=== PATIENT | female | born 1965 | race Caucasian/White ===

== ENCOUNTER 2018-06-14 17:03 | Emergency (ER) | payer MEDICAID ==
[~2018-06-14] VITALS: Ht 149.9 cm; Wt 77.1 kg
[2018-06-14 17:07] VITALS: BP_SYST 153
[2018-06-14] MEDS ORDERED: KETOROLAC TROMETHAMINE 30 MG VIAL IM ONE (17:30)
[2018-06-14 18:34] VITALS: BP_SYST 140
== END 2018-06-14 18:34 | disposition home or self-care (01) ==
LOC: SED 17:03
DX: G89.29 Other chronic pain (principal); M17.12 Unilateral primary osteoarthritis, left knee; I10 Essential (primary) hypertension
CPT/HCPCS: 73564; 96372; 99283; J1885; 99284

== ENCOUNTER 2020-11-22 18:47 | Emergency (ER) | payer MEDICAID, OTHER ==
[~2020-11-22] VITALS: Ht 149.9 cm; Wt 74.8 kg
[2020-11-22 18:52] VITALS: BP_SYST 118
[2020-11-22] MEDS ORDERED: KETOROLAC TROMETHAMINE 60 MG/2 ML VIAL IM ONE (19:00)
[2020-11-22] MEDS ORDERED: NAPR-690 PO (20:18)
[2020-11-22 20:20] VITALS: BP_SYST 118
== END 2020-11-22 20:20 | disposition home or self-care (01) ==
LOC: SED 18:47
DX: M25.512 Pain in left shoulder (principal); I10 Essential (primary) hypertension
CPT/HCPCS: 96374; 99283; J1885

== ENCOUNTER 2020-11-27 19:02 | Emergency (ER) | payer OTHER ==
[~2020-11-27] VITALS: Ht 149.9 cm; Wt 70.3 kg
[~2020-11-27 19:02] MED LIST: NAPR-690 PO
[2020-11-27 19:10] VITALS: BP_SYST 116
--- NOTE | 2020-11-27 19:10 | NUR ---
PT TO BED 5 FOR EVALUATION, REPORT GIVEN TO JEFFRY KENNEDY WHO WILL ASSUME CARE.
--- NOTE | 2020-11-27 19:17 | NUR ---
DR. TYLER AT BEDSIDE FOR PATIENT EVALUATION.
[2020-11-27] MEDS ORDERED: NAPR-1172 PO (19:37)
--- NOTE | 2020-11-27 19:38 | NUR ---
PATIENT AAOX4 AND AMBULATORY C/O LEFT SHOULDER WORSENING PAIN AFTER LOSING BALANCE AND INJURING SHOULDER AT [place]. PATIENT STATED HAVING ORTHO APPOINTMENT ON THE . CURRENTLY RATING 6/10 ON THE PAIN SCALE. HISTORY OF DM AND HTN. VSS.
[2020-11-27] MEDS ORDERED: IBUPROFEN 600 MG TABLET PO ONE (19:45)
--- NOTE | 2020-11-27 19:45 | NUR ---
MEDICATION ADMINISTERED ORDERED.
--- NOTE | 2020-11-27 19:48 | NUR ---
Patient given written and verbal discharge instructions and verbalizes understanding. DR. NAYELI PADRON MD discussed with patient the results and treatment provided. Patient in stable condition. ID arm band removed. Rx of NAPROXEN given. Patient educated on pain management and to follow up with PMD. Pain Scale 0/10 Opportunity for questions provided and answered. Medication side effect fact sheet provided.
[2020-11-27 19:49] VITALS: BP_SYST 116
== END 2020-11-27 19:48 | disposition home or self-care (01) ==
LOC: SED 19:02
DX: G89.29 Other chronic pain (principal); M25.512 Pain in left shoulder; I10 Essential (primary) hypertension; Z79.899 Other long term (current) drug therapy
CPT/HCPCS: 99282

== ENCOUNTER 2020-12-10 23:48 | Emergency (ER) | payer OTHER ==
[~2020-12-10] VITALS: Ht 149.9 cm; Wt 72.6 kg
[~2020-12-10 23:48] MED LIST changes: +NAPR-1172 PO
[2020-12-11 00:05] VITALS: BP_SYST 143
[2020-12-11 00:38] VITALS: BP_SYST 143
[2020-12-11] MEDS ORDERED: NAPR-1172 PO (00:40)
[2020-12-11] MEDS ORDERED: HYDROcodone/ACETAMIN 5-325 MG TAB (NORCO/ VICODIN) PO ONE (00:45)
== END 2020-12-11 00:50 | disposition home or self-care (01) ==
LOC: SED 23:48
DX: M25.512 Pain in left shoulder (principal); I10 Essential (primary) hypertension; E11.9 Type 2 diabetes mellitus without complications; Z79.899 Other long term (current) drug therapy
CPT/HCPCS: 99283

== ENCOUNTER 2020-12-15 16:44 | Emergency (ER) | payer OTHER ==
[~2020-12-15] VITALS: Ht 149.9 cm; Wt 74.8 kg
[2020-12-15 17:08] VITALS: BP_SYST 131
[2020-12-15] MEDS ORDERED: HYDROcodone/ACETAMIN 7.5-325 MG TAB PO ONE (17:15)
[2020-12-15] MEDS ORDERED: IBUPROFEN 800 MG TABLET PO ONE (17:15)
[2020-12-15] MEDS ORDERED: HYDR-3917 PO (17:49)
[2020-12-15] MEDS ORDERED: IBUP-1969 PO (17:49)
[2020-12-15 18:13] VITALS: BP_SYST 106
== END 2020-12-15 18:13 | disposition home or self-care (01) ==
LOC: SED 16:44
DX: M25.512 Pain in left shoulder (principal); I10 Essential (primary) hypertension; Z79.899 Other long term (current) drug therapy
CPT/HCPCS: 73030; 99283

== ENCOUNTER 2020-12-22 17:49 | Emergency (ER) | payer OTHER ==
[~2020-12-22] VITALS: Ht 149.9 cm; Wt 74.8 kg
[~2020-12-22 17:49] MED LIST changes: +HYDR-3917 PO; +IBUP-1969 PO
[2020-12-22 17:55] VITALS: BP_SYST 154
[2020-12-22] MEDS ORDERED: KETOROLAC TROMETHAMINE 30 MG VIAL IM ONE (18:30)
[2020-12-22 19:06] VITALS: BP_SYST 152
== END 2020-12-22 19:06 | disposition home or self-care (01) ==
LOC: SED 17:49
DX: G89.29 Other chronic pain (principal); M25.511 Pain in right shoulder; I10 Essential (primary) hypertension; Z79.899 Other long term (current) drug therapy
CPT/HCPCS: 96372; 99283; J1885

== ENCOUNTER 2021-03-21 15:56 | Emergency (ER) | payer MEDICAID, OTHER ==
[~2021-03-21] VITALS: Ht 149.9 cm; Wt 74.8 kg
[2021-03-21 16:03] VITALS: BP_SYST 133
[2021-03-21] MEDS ORDERED: DIPHENHYDRAMINE INJ 50 MG/ML VIAL IM ONE (19:45)
[2021-03-21] MEDS ORDERED: MORPHINE SULFATE 10 MG/ML VIAL IM ONE (19:45)
[2021-03-21 19:50] VITALS: BP_SYST 134
== END 2021-03-21 20:56 | disposition admitted as inpatient to this hospital (09) ==
LOC: SED 15:56
DX: G89.18 Other acute postprocedural pain (principal); M25.512 Pain in left shoulder; I10 Essential (primary) hypertension; E11.9 Type 2 diabetes mellitus without complications; Z79.899 Other long term (current) drug therapy
CPT/HCPCS: 96372; 99284; J1200; J2270

== ENCOUNTER 2021-04-10 23:31 | Emergency (ER) | payer MEDICAID ==
[~2021-04-10] VITALS: Ht 149.9 cm; Wt 74.8 kg
[2021-04-11 00:28] VITALS: BP_SYST 142
--- NOTE | 2021-04-11 00:38 | NUR ---
Patient ambulatory, alert awake, oriented x 4. To waiting room
--- NOTE | 2021-04-11 03:22 | NUR ---
PT ARRIVED TO ER WITH COMPLAINSTS OF LEFT SHOULDER PAIN AND MEDICATION REFILL. PT HAD SURGERY ON HER LEFT SHOULDER ON OCTOBER AND HAS BEEN TKAING [place] FOR HER PAIN. PT HAS RAN OUT AND NEEDS MORE. 10/10 PAIN. STATES SHE WAS TAKING 2 AT A TIME BECASUE HER PAIN WAS SO MUCH. SHE HAS BEEN OUT OF HER MEDS FOR A WEEK NOW
--- NOTE | 2021-04-11 03:55 | NUR ---
ER Dr MENDES at bedside examining patient.
--- NOTE | 2021-04-11 04:10 | NUR ---
BG 141
[2021-04-11] MEDS ORDERED: MORPHINE 4 MG INJ. 4 MG/ML VIAL IM ONE (04:15)
[2021-04-11] MEDS ORDERED: KETOROLAC TROMETHAMINE 30 MG VIAL IM ONE (04:15)
[2021-04-11] MEDS ORDERED: MORPHINE 4 MG INJ. 4 MG/ML VIAL ONE (04:16)
[2021-04-11] MEDS ORDERED: HYDR-3917 PO (05:50)
[2021-04-11 06:19] VITALS: BP_SYST 155
--- NOTE | 2021-04-11 06:20 | NUR ---
Patient given written and verbal discharge instructions and verbalizes understanding. ER MD discussed with patient the results and treatment provided. Patient in stable condition. ID arm band removed. Patient educated on pain management and to follow up with PMD. Pain Scale 5/10. Opportunity for questions provided and answered. Medication side effect fact sheet provided.
== END 2021-04-11 06:18 | disposition home or self-care (01) ==
LOC: SED 23:31
DX: M25.512 Pain in left shoulder (principal); I10 Essential (primary) hypertension; E11.9 Type 2 diabetes mellitus without complications; Z79.899 Other long term (current) drug therapy
CPT/HCPCS: 73030; 82962; 93005; 96372; 99284; J1885; J2270

== ENCOUNTER 2021-05-09 11:48 | Emergency (ER) | payer MEDICAID ==
[~2021-05-09] VITALS: Ht 149.9 cm; Wt 108.9 kg
[2021-05-09 11:58] VITALS: BP_SYST 162
--- NOTE | 2021-05-09 12:00 | NUR ---
Patient to ER bed 8 to gown for evaluation. Side rails up. Report given to Le TERAN.
--- NOTE | 2021-05-09 12:03 | NUR ---
ER at bedside examining patient.
--- NOTE | 2021-05-09 12:10 | NUR ---
Urine sample and sent to lab for analysis.
--- NOTE | 2021-05-09 12:25 | NUR ---
Lab at bedside for blood draw.
--- NOTE | 2021-05-09 12:38 | NUR ---
Pt to CT scan by wheelchair.
[2021-05-09 12:44] LABS: BASOPHILS # (AUTO) 0.1 K/uL (0.0-0.2); BASOPHILS % (AUTO) 0.7 % (0.0-2.0); EOSINOPHILS # (AUTO) 0.2 K/uL (0.0-0.4); EOSINOPHILS % (AUTO) 2.5 % (0.0-4.0); HEMATOCRIT 43.4 % (36-48); HEMOGLOBIN 15.2 g/dL (12.0-16.0); LYMPHOCYTES % (AUTO) 38.2 % (20.5-51.5); MEAN CORPUSCULAR HEMOGLOBIN 33 pg (27-31); MEAN CORPUSCULAR HGB CONC 35 % (32-36); MEAN CORPUSCULAR VOLUME 95 fL (79.0-98.0); MONOCYTES # (AUTO) 0.8 K/uL (0.0-1.0); MONOCYTES % (AUTO) 9.8 % (1.7-9.3); NEUTROPHILS # (AUTO) 3.8 K/uL (1.8-7.7); NEUTROPHILS % (AUTO) 48.8 % (40.0-70.0); PLATELET COUNT (AUTO) 144 K/uL (130-430); RED BLOOD CELL COUNT(AUTO) 4.58 MIL/uL (4.2-6.2); RED CELL DISTRIBUTION WIDTH 15.1 % (9.0-15.0); WHITE BLOOD COUNT (AUTO) 7.9 K/uL (4.8-10.8)
--- NOTE | 2021-05-09 12:50 | NUR ---
Pt back from CT scan.
[2021-05-09 12:56] LABS: BILIRUBIN,URINE NEGATIVE (NEGATIVE); BLOOD, URINE 1+ (NEGATIVE); CLARITY/URINE SL CLOUDY (CLEAR); COLOR,URINE YELLOW (YELLOW); GLUCOSE,URINE NEGATIVE (NEGATIVE); KETONES,URINE TRACE (NEGATIVE); LEUKOCYTE ESTERASE ,URINE 2+ (NEGATIVE); NITRITE, URINE POSITIVE (NEGATIVE); PROTEIN URINE TRACE (NEGATIVE); UROBILINOGEN,URINE 0.2 (0.2-1.0)
[2021-05-09 13:18] LABS: BACTERIA,URINE MODERATE /HPF (None Seen)
[2021-05-09 13:19] LABS: CALCIUM OXALATE CRYSTALS,UR None Seen /HPF (None Seen); CALCIUM PHOSPHATE CRYSTALS,UR None Seen /HPF (None Seen); TRICHOMONAS,URINE None Seen /HPF (None Seen); TRIPLE PHOSPHATE CRYSTAL,UR None Seen /HPF (None Seen); URIC ACID CRYSTALS,URINE None Seen /HPF (None Seen); YEAST,URINE None Seen /HPF (None Seen)
[2021-05-09 13:27] LABS: PROTHROMBIN TIME 10.4 SECS (9.5-12.5)
[2021-05-09] MEDS ORDERED: KETOROLAC TROMETHAMINE 60 MG/2 ML VIAL IM ONE (13:30)
--- NOTE | 2021-05-09 13:35 | NUR ---
Pt is resting quietly awaiting disposition.
[2021-05-09 13:45] LABS: CALCIUM 9.6 mg/dL (8.4-11.0); CREATININE 0.75 mg/dL (0.55-1.30); POTASSIUM 4.2 mmol/L (3.5-5.1)
[2021-05-09 13:52] LABS: ALBUMIN 3.6 g/dL (3.4-4.8); TOTAL BILIRUBIN 0.5 mg/dL (0.0-1.0)
[2021-05-09] MEDS ORDERED: cefTRIAXone 1 GM in LIDOCAINE 1%, 20 ML MDV 2.1 ML IM ONE (14:00)
[2021-05-09] MEDS ORDERED: HYDR-3917 PO (14:05)
[2021-05-09] MEDS ORDERED: OMEP20CA15 PO (14:05)
[2021-05-09 14:29] LABS: C-REACTIVE PROTEIN QUANT 0.2 mg/dL (0-0.5)
[2021-05-09] MEDS ORDERED: CEPH-548 PO (14:33)
[2021-05-09 14:35] VITALS: BP_SYST 148
--- NOTE | 2021-05-09 14:35 | NUR ---
Patient given written and verbal discharge instructions and verbalizes understanding. Dr. Evie PADRON MD discussed with patient the results and treatment provided. Patient in stable condition. ID arm band removed. Rx per MD. Patient educated on pain management and to follow up with PMD. Pain Scale 0/10. Opportunity for questions provided and answered. Medication side effect fact sheet provided.
== END 2021-05-09 14:35 | disposition home or self-care (01) ==
LOC: SED 11:48
DX: N39.0 Urinary tract infection, site not specified (principal); I10 Essential (primary) hypertension; E11.9 Type 2 diabetes mellitus without complications; Z79.899 Other long term (current) drug therapy
CPT/HCPCS: 36415; 74176; 76376; 80053; 81000; 82150; 83605; 83615; 83690; 84484; 84703; 85025; 85610; 85730; 86140; 87086; 96372; 99284; J0696; J1885; J2001

== ENCOUNTER 2021-05-19 12:46 | Emergency (ER) | payer MEDICAID ==
[~2021-05-19] VITALS: Ht 149.9 cm; Wt 74.8 kg
[~2021-05-19 12:46] MED LIST changes: +CEPH-548 PO; +OMEP20CA15 PO
[2021-05-19 13:07] VITALS: BP_SYST 159
[2021-05-19] MEDS ORDERED: KETOROLAC TROMETHAMINE 60 MG/2 ML VIAL IM ONE (13:45)
[2021-05-19 14:07] LABS: BASOPHILS % (AUTO) 0.5 % (0.0-2.0); EOSINOPHILS # (AUTO) 0.1 K/uL (0.0-0.4); EOSINOPHILS % (AUTO) 0.9 % (0.0-4.0); HEMATOCRIT 41.4 % (36-48); HEMOGLOBIN 14.4 g/dL (12.0-16.0); LYMPHOCYTES # (AUTO) 2.9 K/uL (1.0-5.5); MEAN CORPUSCULAR HEMOGLOBIN 33 pg (27-31); MEAN CORPUSCULAR HGB CONC 35 % (32-36); MEAN CORPUSCULAR VOLUME 94 fL (79.0-98.0); MONOCYTES # (AUTO) 0.8 K/uL (0.0-1.0); MONOCYTES % (AUTO) 11.9 % (1.7-9.3); NEUTROPHILS # (AUTO) 3.2 K/uL (1.8-7.7); NEUTROPHILS % (AUTO) 45.7 % (40.0-70.0); PLATELET COUNT (AUTO) 169 K/uL (130-430); RED BLOOD CELL COUNT(AUTO) 4.43 MIL/uL (4.2-6.2); RED CELL DISTRIBUTION WIDTH 15.1 % (9.0-15.0)
[2021-05-19 14:20] LABS: CALCIUM 9.2 mg/dL (8.4-11.0); CREATININE 0.58 mg/dL (0.55-1.30); POTASSIUM 4.1 mmol/L (3.5-5.1)
[2021-05-19 14:25] LABS: ALBUMIN 3.4 g/dL (3.4-4.8); TOTAL BILIRUBIN 0.3 mg/dL (0.0-1.0)
[2021-05-19] MEDS ORDERED: ACET1TAB23 PO (16:18)
[2021-05-19 16:26] VITALS: BP_SYST 148
== END 2021-05-19 16:26 | disposition home or self-care (01) ==
LOC: SED 12:46
DX: R10.13 Epigastric pain (principal); I10 Essential (primary) hypertension; E11.9 Type 2 diabetes mellitus without complications; Z79.899 Other long term (current) drug therapy
CPT/HCPCS: 36415; 76700; 80053; 82962; 83690; 84484; 85025; 93005; 96372; 99285; J1885

== ENCOUNTER 2021-05-24 19:37 | Emergency (ER) | payer MEDICAID ==
[~2021-05-24] VITALS: Ht 149.9 cm; Wt 74.8 kg
[2021-05-24 19:37] VITALS: BP_SYST 164
[~2021-05-24 19:37] MED LIST changes: +ACET1TAB23 PO
--- NOTE | 2021-05-24 20:35 | NUR ---
Patient triaged and placed in waiting room. VSS and patient appears in no acute distress at this time. Accompanied by paramedics, awaiting available bed, and MD notified of need for MSE.
--- NOTE | 2021-05-24 21:38 | NUR ---
Patient wheeled to bed 1 for evaluation
[2021-05-24] MEDS ORDERED: ASPIRIN 81 MG TAB.CHEW PO ONE (21:45)
--- NOTE | 2021-05-24 21:50 | NUR ---
PT ARRIVED TO ER BY FOR COMPLAINTS OF EPIGASTRIC PAIN X 2 WEEKS. PT STATES IT HURTS 12/20 CONSTANT. -CP, A&OX4.
--- NOTE | 2021-05-24 22:10 | NUR ---
VITO Gibbons at bedside examining patient.
[2021-05-24] MEDS ORDERED: MAG-AL HYDROX/SIMETH 30 ML UDC PO ONE (22:30)
[2021-05-24] MEDS ORDERED: LIDOCAINE VISCOUS 2%, 15 ML UDC MM ONE (22:30)
[2021-05-24] MEDS ORDERED: PROCHLORPERAZINE EDISYLATE 10 MG/2 ML VIAL IVP ONE (22:30)
[2021-05-24] MEDS ORDERED: MORPHINE 4 MG INJ. 4 MG/ML VIAL IVP ONE (22:30)
[2021-05-24 22:32] LABS: BASOPHILS % (AUTO) 0.6 % (0.0-2.0); EOSINOPHILS # (AUTO) 0.1 K/uL (0.0-0.4); EOSINOPHILS % (AUTO) 1.6 % (0.0-4.0); HEMATOCRIT 37.6 % (36-48); LYMPHOCYTES # (AUTO) 3.3 K/uL (1.0-5.5); MEAN CORPUSCULAR HEMOGLOBIN 33 pg (27-31); MEAN CORPUSCULAR HGB CONC 35 % (32-36); MEAN CORPUSCULAR VOLUME 95 fL (79.0-98.0); MONOCYTES # (AUTO) 0.6 K/uL (0.0-1.0); MONOCYTES % (AUTO) 9.1 % (1.7-9.3); NEUTROPHILS % (AUTO) 41.7 % (40.0-70.0); PLATELET COUNT (AUTO) 152 K/uL (130-430); RED BLOOD CELL COUNT(AUTO) 3.96 MIL/uL (4.2-6.2); RED CELL DISTRIBUTION WIDTH 15.7 % (9.0-15.0); WHITE BLOOD COUNT (AUTO) 7.1 K/uL (4.8-10.8)
[2021-05-24 22:39] LABS: CREATININE 0.69 mg/dL (0.55-1.30)
[2021-05-24 22:45] LABS: ALBUMIN 3.2 g/dL (3.4-4.8); TOTAL BILIRUBIN 0.2 mg/dL (0.0-1.0)
--- NOTE | 2021-05-24 22:52 | NUR ---
# 20 gauge angiocath placed to L WRIST. Use of asceptic technique. Opsite placed over site. Blood return noted. Flushed with 10 cc of normal saline. No evidence of infiltration noted. Patient tolerated well.
--- NOTE | 2021-05-25 00:20 | NUR ---
PT RESTING IN BED. VSS. NO DISTRESS NOTED
[2021-05-25] MEDS ORDERED: METO5TAB86 PO (03:07)
[2021-05-25] MEDS ORDERED: MOM PO (03:07)
[2021-05-25] MEDS ORDERED: OMEP40CA20 PO (03:07)
--- NOTE | 2021-05-25 03:16 | NUR ---
Patient given written and verbal discharge instructions and verbalizes understanding. ER MD discussed with patient the results and treatment provided. Patient in stable condition. ID arm band removed. IV catheter removed intact and dressing applied, no active bleeding. Rx of REGLAN, MILK OF MAGNESIA, OMEPRZOLE given. Patient educated on pain management and to follow up with PMD. Pain Scale 2/10. Opportunity for questions provided and answered. Medication side effect fact sheet provided.
[2021-05-25 03:24] VITALS: BP_SYST 164
== END 2021-05-25 03:24 | disposition home or self-care (01) ==
LOC: SED 19:37
DX: K29.70 Gastritis, unspecified, without bleeding (principal); I10 Essential (primary) hypertension; E11.9 Type 2 diabetes mellitus without complications; Z79.899 Other long term (current) drug therapy
CPT/HCPCS: 36415; 71045; 74018; 80053; 83880; 84484; 85025; 85651; 93005; 96374; 96375; 99285; J0780; J2001; J2270

== ENCOUNTER 2022-02-22 11:57 | Emergency (ER) | payer MEDICAID ==
[~2022-02-22] VITALS: Ht 149.9 cm; Wt 70.3 kg
[~2022-02-22 11:57] MED LIST changes: -ACET1TAB23 PO; -CEPH-548 PO; +CLON0.1T PO; -HYDR-3917 PO; +LISI10TA29 PO; +MOM PO; -NAPR-1172 PO; -NAPR-690 PO; -OMEP20CA15 PO
[2022-02-22 12:13] VITALS: BP_SYST 174
--- NOTE | 2022-02-22 14:24 | NUR ---
MD GONSALEZAW IN TRIAGE FOR MSE
[2022-02-22 15:00] LABS: BASOPHILS # (AUTO) 0.2 K/uL (0.0-0.2); BASOPHILS % (AUTO) 2.1 % (0.0-2.0); EOSINOPHILS # (AUTO) 0.5 K/uL (0.0-0.4); EOSINOPHILS % (AUTO) 6.6 % (0.0-4.0); HEMATOCRIT 40.3 % (36-48); LYMPHOCYTES # (AUTO) 2.3 K/uL (1.0-5.5); LYMPHOCYTES % (AUTO) 28.3 % (20.5-51.5); MEAN CORPUSCULAR VOLUME 91 fL (79.0-98.0); MONOCYTES # (AUTO) 0.6 K/uL (0.0-1.0); MONOCYTES % (AUTO) 7.2 % (1.7-9.3); NEUTROPHILS # (AUTO) 4.5 K/uL (1.8-7.7); NEUTROPHILS % (AUTO) 55.8 % (40.0-70.0); PLATELET COUNT (AUTO) 167 K/uL (130-430); RED BLOOD CELL COUNT(AUTO) 4.42 MIL/uL (4.2-6.2); RED CELL DISTRIBUTION WIDTH 14.5 % (9.0-15.0); WHITE BLOOD COUNT (AUTO) 8.1 K/uL (4.8-10.8)
[2022-02-22 15:04] LABS: CALCIUM 10.5 mg/dL (8.4-11.0); CREATININE 0.97 mg/dL (0.55-1.30); POTASSIUM 4.3 mmol/L (3.5-5.1)
[2022-02-22 15:09] LABS: ALBUMIN 3.6 g/dL (3.4-4.8); TOTAL BILIRUBIN 0.5 mg/dL (0.0-1.0)
[2022-02-22] MEDS ORDERED: INSULIN REGULAR, HUMAN 10 UNITS/0.1 ML INJ SUBCUT ONE (15:15)
--- NOTE | 2022-02-22 16:41 | NUR ---
Patient to ER CHAIR for evaluation.
--- NOTE | 2022-02-22 16:43 | NUR ---
PATIENT BROUGHT INTO ED WITH COMPLAIING OF GENERALIZED WEAKNESS. PATIENT IS OUT OF DIABETIC AND HYPERTENSIVE MEDICATIONS. PATIENT REPORTS JUST MOVING AND UNABLE TO FIND A PCP. PATIENT REPORTS HAVING LEFT SHOULDER SURGERY NEXT MONTH AND NEEDS TO BE MEDICALLY CLEARED. DENIES ANY PAIN.
[2022-02-22 16:55] LABS: BILIRUBIN,URINE NEGATIVE (NEGATIVE); BLOOD, URINE NEGATIVE (NEGATIVE); COLOR,URINE YELLOW (YELLOW); GLUCOSE,URINE 3+ (NEGATIVE); KETONES,URINE 1+ (NEGATIVE); LEUKOCYTE ESTERASE ,URINE NEGATIVE (NEGATIVE); NITRITE, URINE NEGATIVE (NEGATIVE); PROTEIN URINE NEGATIVE (NEGATIVE); UROBILINOGEN,URINE 0.2 (0.2-1.0)
[2022-02-22 16:59] LABS: CLARITY/URINE SLIGHTLY HAZY (CLEAR)
[2022-02-22 17:21] LABS: BACTERIA,URINE FEW /HPF (None Seen); MUCUS,URINE None Seen /LPF (None Seen); RBC,URINE NONE SEEN /HPF (0-3)
[2022-02-22] MEDS ORDERED: INSU100I26 SQ (18:20)
[2022-02-22] MEDS ORDERED: LISI20TA30 PO (18:20)
--- NOTE | 2022-02-22 18:23 | NUR ---
Patient given written and verbal discharge instructions and verbalizes understanding. ER MD discussed with patient the results and treatment provided. Patient in stable condition. ID arm band removed. Rx of BASAGLAR, LISINOPRIL given. Patient educated on pain management and to follow up with PMD. Pain Scale 0/10 Opportunity for questions provided and answered. Medication side effect fact sheet provided.
[2022-02-22 18:24] VITALS: BP_SYST 152
== END 2022-02-22 18:24 | disposition home or self-care (01) ==
LOC: SED 11:57
DX: E11.9 Type 2 diabetes mellitus without complications (principal); I10 Essential (primary) hypertension; R53.1 Weakness; Z79.4 Long term (current) use of insulin; Z79.899 Other long term (current) drug therapy
CPT/HCPCS: 36415; 80053; 81000; 82962; 85025; 96372; 99283; J1815

== ENCOUNTER 2022-10-03 20:54 | Emergency (ER) | payer MEDICAID ==
[~2022-10-03] VITALS: Ht 149.9 cm; Wt 77.1 kg
[~2022-10-03 20:54] MED LIST changes: +INSU100I26 SQ; +LISI20TA30 PO
[2022-10-03 21:02] VITALS: BP_SYST 123
[2022-10-03] MEDS ORDERED: ONDANSETRON 4 MG ODT TAB PO ONE (22:15)
[2022-10-03] MEDS ORDERED: MORPHINE 4 MG INJ. 4 MG/ML VIAL IM ONE (22:15)
[2022-10-03] MEDS ORDERED: OXYC-128 PO (22:44)
[2022-10-03] MEDS ORDERED: NAPR-688 PO (22:44)
[2022-10-03 23:21] VITALS: BP_SYST 132
== END 2022-10-03 23:21 | disposition home or self-care (01) ==
LOC: SED 20:54
DX: M25.512 Pain in left shoulder (principal); G89.29 Other chronic pain; E11.9 Type 2 diabetes mellitus without complications; I10 Essential (primary) hypertension; Z79.4 Long term (current) use of insulin; Z79.899 Other long term (current) drug therapy
CPT/HCPCS: 99283; 73030; 96372; Q0162; J2270

== ENCOUNTER 2022-10-14 21:21 | Emergency (ER) | payer MEDICAID ==
[~2022-10-14] VITALS: Ht 162.6 cm; Wt 63.5 kg
[~2022-10-14 21:21] MED LIST changes: +NAPR-688 PO; +OXYC-128 PO
[2022-10-14 21:24] VITALS: BP_SYST 136
== END 2022-10-15 02:00 | disposition left against medical advice (07) ==
LOC: SED 21:21
DX: M25.512 Pain in left shoulder (principal); G89.29 Other chronic pain; Z53.21 Procedure and treatment not carried out due to patient leaving prior to being seen by health care provider
CPT/HCPCS: 99281

== ENCOUNTER 2022-10-17 18:18 | Emergency (ER) | payer MEDICAID ==
[~2022-10-17] VITALS: Ht 157.5 cm; Wt 77.1 kg
[2022-10-17 18:29] VITALS: BP_SYST 155
[2022-10-17] MEDS ORDERED: KETOROLAC TROMETHAMINE 60 MG/2 ML VIAL IM ONE (19:00)
[2022-10-17] MEDS ORDERED: NAPR-1172 PO (19:58)
[2022-10-17 20:09] VITALS: BP_SYST 150
== END 2022-10-17 20:09 | disposition home or self-care (01) ==
LOC: SED 18:18
DX: M25.512 Pain in left shoulder (principal); I10 Essential (primary) hypertension; E11.9 Type 2 diabetes mellitus without complications; Z79.899 Other long term (current) drug therapy; Z79.4 Long term (current) use of insulin
CPT/HCPCS: 99283; 73030; 96372; J1885

== ENCOUNTER 2023-02-21 18:25 | Emergency (ER) | payer MEDICAID ==
[~2023-02-21] VITALS: Ht 149.9 cm; Wt 74.8 kg
[~2023-02-21 18:25] MED LIST changes: +NAPR-1172 PO
[2023-02-21] MEDS ORDERED: ATOR20TA64 PO (18:43)
[2023-02-21 18:46] VITALS: BP_SYST 171; PULSE 89; RESP 16; TEMP 97.4; O2SAT 98
[2023-02-21 19:52] LABS: BASOPHILS % (AUTO) 0.4 % (0.0-2.0); EOSINOPHILS # (AUTO) 0.1 K/uL (0.0-0.4); EOSINOPHILS % (AUTO) 1.3 % (0.0-4.0); HEMATOCRIT 40.9 % (36-48); HEMOGLOBIN 14.2 g/dL (12.0-16.0); LYMPHOCYTES # (AUTO) 2.3 K/uL (1.0-5.5); LYMPHOCYTES % (AUTO) 38.4 % (20.5-51.5); MEAN CORPUSCULAR HEMOGLOBIN 33 pg (27-31); MEAN CORPUSCULAR HGB CONC 35 % (32-36); MEAN CORPUSCULAR VOLUME 95 fL (79.0-98.0); MONOCYTES # (AUTO) 0.7 K/uL (0.0-1.0); MONOCYTES % (AUTO) 11.5 % (1.7-9.3); NEUTROPHILS # (AUTO) 2.9 K/uL (1.8-7.7); NEUTROPHILS % (AUTO) 48.4 % (40.0-70.0); PLATELET COUNT (AUTO) 144 K/uL (130-430); RED BLOOD CELL COUNT(AUTO) 4.32 MIL/uL (4.2-6.2); RED CELL DISTRIBUTION WIDTH 14.2 % (9.0-15.0); WHITE BLOOD COUNT (AUTO) 6.1 K/uL (4.8-10.8)
[2023-02-21 19:59] LABS: CALCIUM 9.2 mg/dL (8.4-11.0); CREATININE 0.72 mg/dL (0.55-1.30); POTASSIUM 4.3 mmol/L (3.5-5.1)
[2023-02-21 21:20] LABS: BILIRUBIN,URINE NEGATIVE (NEGATIVE); BLOOD, URINE NEGATIVE (NEGATIVE); CLARITY/URINE Clear (CLEAR); COLOR,URINE YELLOW (YELLOW); GLUCOSE,URINE NEGATIVE (NEGATIVE); KETONES,URINE 1+ (NEGATIVE); NITRITE, URINE NEGATIVE (NEGATIVE); PROTEIN URINE NEGATIVE (NEGATIVE); UROBILINOGEN,URINE 0.2 (0.2-1.0)
[2023-02-21 21:27] LABS: LEUKOCYTE ESTERASE ,URINE 1+ (NEGATIVE)
[2023-02-21 21:28] LABS: BACTERIA,URINE FEW /HPF (None Seen); MUCUS,URINE None Seen /LPF (None Seen); RBC,URINE NONE SEEN /HPF (0-3)
[2023-02-21] MEDS ORDERED: NITR-85 PO (21:43)
[2023-02-21 23:05] VITALS: BP_SYST 168; PULSE 75; RESP 18; TEMP 97.4; O2SAT 99
== END 2023-02-21 23:03 | disposition home or self-care (01) ==
LOC: SED 18:25
DX: N39.0 Urinary tract infection, site not specified (principal); R10.2 Pelvic and perineal pain; R07.89 Other chest pain; E11.9 Type 2 diabetes mellitus without complications; I10 Essential (primary) hypertension; Z79.4 Long term (current) use of insulin; Z79.899 Other long term (current) drug therapy
CPT/HCPCS: 36415; 80048; 81000; 85025; 87086; 99283